=== PATIENT | female | born 1965 | race Caucasian/White ===

== ENCOUNTER → 2016-08-17 | Outpatient (CLI) | payer BC ==
[~2016-08-17] MED LIST: HYDR-3419 PO; SPIR25TA PO; TOPI200T14 PO
--- NOTE | 2016-08-18 13:06 | MAMMOGRAPHY REPORT ---
BILATERAL DIGITAL SCREENING MAMMOGRAM TOMOSYNTHESIS WITH CAD: 08/17/2016 CLINICAL HISTORY: Routine screening. Patient has no complaints. TECHNIQUE: Breast tomosynthesis in addition to standard 2D mammography was performed. Current study was also evaluated with a Computer Aided Detection (CAD) system. COMPARISON: Comparison is made to exams dated: 08/12/2015 mammogram, 06/14/2013 mammogram, 01/10/2012 mammogram, 08/03/2010 mammogram - [facility], 12/23/2008, and 06/27/2007. BREAST COMPOSITION: The tissue of both breasts is heterogeneously dense, which may obscure small ma sses. FINDINGS: No suspicious masses, calcifications, or areas of architectural distortion are noted in e ither breast. There has been no significant interval change compared to prior exams. IMPRESSION: ACR BI-RADS CATEGORY 1: NEGATIVE There is no mammographic evidence of malignancy. A 1 year screening mammogram is recommended. The p atient will receive written notification of the results. Approximately 10% of breast cancers are not detected with mammography. A negative mammographic repor t should not delay biopsy if a clinically suggestive mass is present. Ayah Buenrostro M.D. ah/:08/18/2016 07:22:22 Home Aid: Seth HIDALGO(Jerri)(M), [facility] letter sent: Normal 1/2 BI-RADS Code: ACR BI-RADS Category 1: Negative
== END | disposition home or self-care (01) ==
LOC: C.MAMM 17:24
PROVIDERS: ATTEND Internal Medicine
DX: Z12.31 Encounter for screening mammogram for malignant neoplasm of breast (principal)

== ENCOUNTER → 2017-04-27 | Outpatient (CLI) | payer BC ==
[2017-04-27 12:43] LABS: HEMATOCRIT 39.2 % (37-47); HEMOGLOBIN 12.8 g/dL (12.0-16.0); MEAN CELL VOLUME 99.7 fL (80-100); MEAN CORPUSCULAR HEMOGLOBIN 32.6 pg (25-34); MEAN CORPUSCULAR HGB CONC 32.7 g/dl (32-36); MEAN PLATELET VOLUME 9.4 fL (7.4-10.4); PLATELET COUNT 242 K/uL (130-400); RED CELL DISTRIBUTION WIDTH CV 12.6 % (11.5-14.5); RED CELL DISTRIBUTION WIDTH SD 46.7 fL (36.4-46.3); WHITE BLOOD COUNT 5.28 K/uL (4.8-10.8)
[2017-04-27 13:21] LABS: BLOOD UREA NITROGEN 25 mg/dl (7-18); CALCIUM 9.2 mg/dl (8.5-10.1); CARBON DIOXIDE 29 mmol/L (21-32); CHOLESTEROL 197 mg/dl (0-200); CREATININE 1.16 mg/dl (0.60-1.20); GLUCOSE 79 mg/dl (70-99); POTASSIUM 4.3 mmol/L (3.5-5.1); SODIUM 140 mmol/L (136-145)
[2017-04-27 13:36] LABS: LDL CHOLESTEROL CALCULATED 88 mg/dl
== END | disposition home or self-care (01) ==
LOC: C.LABBFT 07:37
PROVIDERS: ATTEND Nurse Practitioner
DX: Z13.6 Encounter for screening for cardiovascular disorders (principal); Z13.228 Encounter for screening for other metabolic disorders; R53.83 Other fatigue

== ENCOUNTER → 2017-04-27 | Outpatient (CLI) | payer BC | END | disposition home or self-care (01) | LOC: C.LABBFT 07:50 | PROVIDERS: ATTEND Nurse Practitioner | DX: R35.0 Frequency of micturition (principal) ==